=== PATIENT | male | born 1985 | race African-American/Black ===

== ENCOUNTER → 2018-02-07 | Outpatient (CLI) | payer OTHER | LOC: COL.RAD 07:30 | DX: D35.2 Benign neoplasm of pituitary gland (principal) | CPT/HCPCS: A9585 ==

== ENCOUNTER → 2021-06-20 | Outpatient (CLI) | payer OTHER | LOC: COL.RAD 12:01 | DX: D49.7 Neoplasm of unspecified behavior of endocrine glands and other parts of nervous system (principal); E89.3 Postprocedural hypopituitarism ==